=== PATIENT | male | born 1950 | race American Indian/Alaskan Native ===

== ENCOUNTER 2020-11-23 22:03 | Emergency (ER) | payer MEDICARE, MEDICAID ==
[2020-11-23 22:20] VITALS: BP 164/81
--- NOTE | 2020-11-23 22:25 | Emergency Department Report ---
ED Extremity Problem HPI - General Chief complaint: Extremity Injury, Lower Stated complaint: RT ANKLE PAIN Source: patient Mode of arrival: Ambulatory Limitations: No Limitations - History of Present Illness Initial comments: Patient is a 70-year-old -[place] male with a history of hypertension and mpg-dhgegel-ujwsigkit diabetes who presents to the ED with complaint of acute onset persistent painful swollen mild erythematous maculopapular rash on distal right lower leg and medial right ankle for the last 3 weeks. Patient states that the pain has worsened in the last 4 days. Patient also states that the pain is worse with ambulation or palpation of the right lower leg or right ankle. Patient denies fall, traumatic injury, nausea, vomiting, diarrhea, dizziness, syncope, fever, chills, numbness and tingling or weakness of right leg, chest pain or shortness of breath. MD Complaint: extremity pain (Right lower leg and ankle pain), extremity swelling (Right ankle pain and swelling due to erythematous maculopapular rash), other (Erythematous maculopapular rash on right lower leg and ankle) -: Gradual, week(s) (3) Location: right, lower extremity (lower leg and ankle) History of Same: No -: Yes arthralgia, No associated dyspnea, No associated chest pain Radiation: none Severity scale (0 -10): 5 Quality: aching, sharp Consistency: constant Improves with: nothing Worsens with: weight bearing, walking, palpation Associated Symptoms: denies other symptoms, myalgias, arthralgias, rash (Mild erythematous maculopapular rash on right lower leg and ankle). denies: chest pain, shortness of breath, fever - Related Data Previous Rx's Medication Instructions Recorded Last Taken Type Ibuprofen [Motrin] 600 mg PO Q8H PRN #30 tablet 11/23/20 Unknown Rx Sulfamethoxazole/Trimethoprim 1 each PO Q12H #20 tablet 11/23/20 Unknown Rx [Bactrim DS TAB] traMADoL [Ultram] 50 mg PO Q6HR PRN #12 tablet 11/23/20 Unknown Rx Allergies Allergy/AdvReac Type Severity Reaction Status Date / Time No Known Allergies Allergy Verified 11/23/20 22:20 ED Review of Systems ROS: Stated complaint: RT ANKLE PAIN Other details as noted in HPI Constitutional: denies: chills, fever Eyes: denies: eye pain, eye discharge, vision change ENT: denies: ear pain, throat pain Respiratory: denies: cough, shortness of breath, wheezing Cardiovascular: denies: chest pain, palpitations Endocrine: no symptoms reported Gastrointestinal: denies: abdominal pain, nausea, diarrhea Genitourinary: denies: urgency, dysuria Musculoskeletal: arthralgia (right ankle and lower leg pain due to mildly erythematous maculopapular rash), myalgia. denies: back pain, joint swelling Skin: rash, change in color (Erythematous maculopapular painful rash on right lower leg and right ankle medially). denies: lesions Neurological: denies: headache, weakness, paresthesias Psychiatric: denies: anxiety, depression Hematological/Lymphatic: denies: easy bleeding, easy bruising ED Past Medical Hx - Past Medical History Previous Medical History?: Yes Hx Hypertension: Yes Hx Diabetes: Yes - Surgical History Past Surgical History?: Yes Additional Surgical History: bilateral knee replacement - Social History Smoking Status: Never Smoker Substance Use Type: None - Medications Home Medications: Home Medications Medication Instructions Recorded Confirmed Last Taken Type Ibuprofen [Motrin] 600 mg PO Q8H PRN #30 tablet 11/23/20 Unknown Rx Sulfamethoxazole/Trimethoprim 1 each PO Q12H #20 tablet 11/23/20 Unknown Rx [Bactrim DS TAB] traMADoL [Ultram] 50 mg PO Q6HR PRN #12 tablet 11/23/20 Unknown Rx ED Physical Exam - General Limitations: No Limitations General appearance: alert, in no apparent distress - Head Head exam: Present: atraumatic, normocephalic, normal inspection - Eye Eye exam: Present: normal appearance, PERRL, EOMI Pupils: Present: normal accommodation - ENT ENT exam: Present: normal exam, normal orophraynx, mucous membranes moist, TM's normal bilaterally, normal external ear exam - Neck Neck exam: Present: normal inspection, full ROM. Absent: tenderness - Respiratory Respiratory exam: Present: normal lung sounds bilaterally. Absent: respiratory distress, wheezes, rales, rhonchi, chest wall tenderness, decreased breath sounds, prolonged expiratory - Cardiovascular Cardiovascular Exam: Present: regular rate, normal rhythm, normal heart sounds. Absent: systolic murmur, diastolic murmur, rubs, gallop - GI/Abdominal GI/Abdominal exam: Present: soft, normal bowel sounds. Absent: tenderness, guarding, rebound, hyperactive bowel sounds, hypoactive bowel sounds, organomegaly - Extremities Exam Extremities exam: Present: normal inspection, full ROM, tenderness (Palpable mild distal right lower leg and medial right ankle tenderness due to erythematous maculopapular nonfluctuant rash), normal capillary refill. Absent: pedal edema, joint swelling, calf tenderness - Back Exam Back exam: Present: normal inspection, full ROM. Absent: tenderness, CVA tenderness (R), CVA tenderness (L), muscle spasm, paraspinal tenderness, vertebral tenderness - Neurological Exam Neurological exam: Present: alert, oriented X3, CN II-XII intact, normal gait, reflexes normal - Psychiatric Psychiatric exam: Present: normal affect, normal mood - Skin Skin exam: Present: warm, dry, intact, rash (Erythematous maculopapular nonfluctuant rash on medial right ankle and distal right lower leg with localized mild tenderness) ED Course Vital Signs 11/23/20 22:12 Temperature 98.0 F Pulse Rate 82 Respiratory 18 Rate Blood Pressure 164/81 O2 Sat by Pulse 97 Oximetry ED Medical Decision Making - Medical Decision Making This is a 70-year-old -[place] male with a history of hypertension and sfl-kizcnvz-cikeciynp diabetes who presents to the ED with complaint of acute onset persistent painful swollen mild erythematous maculopapular rash on distal right lower leg and medial right ankle for the last 3 weeks. Patient states that the pain has worsened in the last 4 days. Patient also states that the p ain is worse with ambulation or palpation of the right lower leg or right ankle. In the ED, patient is alert and oriented x3 and is not in distress. Based on the physical exam findings, the patient was discharged home on medications and advised to follow-up with a primary care physician or assistant professor of sociology as previously scheduled in 2 days time. Patient was advised return to the ED immediately if symptoms get worse. - Differential Diagnosis Cellulitis; follow colitis; puncture wound; Critical care attestation.: If time is entered above; I have spent that time in minutes in the direct care of this critically ill patient, excluding procedure time. ED Disposition Clinical Impression: Cellulitis of right lower extremity without foot, Cellulitis of right ankle Disposition: - TO HOME OR SELFCARE Is pt being admited?: No Does the pt Need Aspirin: No Condition: Stable Instructions: Cellulitis, Adult, [id number] Additional Instructions: Take medication with food, drink plenty of fluids and follow-up with your primary care physician or assistant professor of sociology as scheduled previously in 2 days time. Return to the ED immediately if symptoms get worse. Prescriptions: Sulfamethoxazole/Trimethoprim [Bactrim DS TAB] 1 each PO Q12H #20 tablet Ibuprofen [Motrin] 600 mg PO Q8H PRN #30 tablet PRN Reason: Pain traMADoL [Ultram] 50 mg PO Q6HR PRN #12 tablet PRN Reason: Pain Referrals: [facility] [Provider Group] - 3-5 Days Time of Disposition: 22:23 Print Language: SLOVENIAN
== END 2020-11-23 23:11 | disposition home or self-care (01) ==
LOC: ED 22:03
DX: L03.115 Cellulitis of right lower limb (principal); I10 Essential (primary) hypertension; E11.9 Type 2 diabetes mellitus without complications; Z98.890 Other specified postprocedural states; Z79.899 Other long term (current) drug therapy
CPT/HCPCS: 99282

== ENCOUNTER 2020-11-27 09:15 | Outpatient (CLI) | payer MEDICARE ==
--- NOTE | 2020-11-27 10:52 | Vascular Lab Report ---
DUPLEX DOPPLER LOWER EXTREMITY VEINS, RIGHT INDICATION: rle pain/swelling. TECHNIQUE: Duplex doppler imaging was performed through the veins of the right lower extremity using venous compression and other maneuvers. COMPARISON: No relevant prior imaging study available. FINDINGS: Right Common femoral vein: Negative. Right Superficial femoral vein: Negative. Right Popliteal vein: Negative. Right Calf veins: Negative. Additional findings: None. IMPRESSION: No sonographic evidence for DVT in the right lower extremity. Signer Name: Ivan Walker Jr, MD Signed: 11/27/2020 10:47 AM Workstation Name: [id number]
== END 2020-11-27 09:16 | disposition home or self-care (01) ==
LOC: VAS 09:15
PROVIDERS: ATTEND Podiatrist Foot & Ankle Surgery
DX: M79.89 Other specified soft tissue disorders (principal); M79.662 Pain in left lower leg

== ENCOUNTER 2021-05-02 09:41 | Emergency (ER) | payer MEDICARE ==
--- NOTE | 2021-05-02 11:22 | Event Note ---
ED Screening Note ED Screening Note: pt presents for leg swelling right greater than left since october 2020 he denies CP, SOB, numbness, weakness hx of HTN and DM pitting edema BLE, right greater than left This initial assessment/diagnostic orders/clinical plan/treatment(s) is/are subject to change based on patients health status, clinical progression and re- assessment by fellow clinical providers in the ED. Further treatment and workup at subsequent clinical providers discretion. Patient/guardian urged not to elope from the ED as their condition may be serious if not clinically assessed and managed. Initial orders include: labs, US
[2021-05-02 11:55] VITALS: BP 165/78
[2021-05-02 11:55] LABS: Basophils # (Auto) 0.1 K/mm3 (0.0-0.1); Basophils % (Auto) 0.8 % (0.0-1.8); Eosinophils # (Auto) 0.1 K/mm3 (0.0-0.4); Eosinophils % (Auto) 1.6 % (0.0-4.3); Hematocrit 37.6 % (35.5-45.6); Lymphocytes % (Auto) 22.7 % (13.4-35.0); Mean Corpuscular HGB Conc 32 % (32-34); Mean Corpuscular Volume 79 fl (84-94); Monocytes # (Auto) 0.8 K/mm3 (0.0-0.8); Monocytes % (Auto) 8.7 % (0.0-7.3); Platelet Count 326 K/mm3 (140-440); Red Blood Count 4.77 M/mm3 (3.65-5.03); Red Cell Distribution Width 15.3 % (13.2-15.2)
[2021-05-02 11:58] LABS: Bilirubin,Urine NEG (Negative); Blood,Urine NEG (Negative); Color,Urine Yellow (Yellow); Protein,Urine <15 mg/dL mg/dL (Negative); Urobilinogen,Urine < 2.0 mg/dL (<2.0); WBC,Urine < 1.0 /HPF (0.0-6.0)
--- NOTE | 2021-05-02 12:01 | Emergency Department Report ---
ED General Adult HPI - General Chief complaint: Extremity Injury, Lower Stated complaint: FOOT SWOLLEN Time Seen by Provider: 05/02/21 11:19 Source: patient Mode of arrival: Ambulatory Limitations: No Limitations - History of Present Illness Initial comments: 70-year-old male patient with history of diabetes presents to the emergency department complaints of bilateral lower extremity swelling worsening for 6 months. Patient was evaluated by his primary care provider today, who sent him to the emergency department for further evaluation. Swelling is worse on the right. States the swelling is not painful. No known history of venous thromboembolism. Patient is not anticoagulated. States his blood glucose levels have been stable. Denies fever, chills, chest pain, shortness of breath, palpitations, syncope, fatigue, dizziness, palpitations, testicular swelling. Denies all other complaints at this time. - Related Data Previous Rx's Medication Instructions Recorded Last Taken Type Ibuprofen [Motrin] 600 mg PO Q8H PRN #30 tablet 11/23/20 Unknown Rx Sulfamethoxazole/Trimethoprim 1 each PO Q12H #20 tablet 11/23/20 Unknown Rx [Bactrim DS TAB] traMADoL [Ultram] 50 mg PO Q6HR PRN #12 tablet 11/23/20 Unknown Rx Allergies Allergy/AdvReac Type Severity Reaction Status Date / Time No Known Allergies Allergy Verified 11/23/20 22:20 ED Review of Systems ROS: Stated complaint: FOOT SWOLLEN Other details as noted in HPI Other: GENERAL: Negative for fever, chills, weight change, anorexia, fatigue. ENT: Negative for ear pain, difficulty hearing, sore throat, nasal congestion, epistaxis. CARDIOVASCULAR: Positive for lower extremity swelling PULMONARY: Negative for cough, dyspnea, wheezing, orthopnea, cyanosis. GASTROINTESTINAL: Negative for abdominal pain, nausea, vomiting, diarrhea, constipation. MUSCULOSKELETAL: Negative for joint pain, joint swelling, myalgias, back pain, neck pain. NEUROLOGICAL: Negative for headache, seizure, syncope, paresthesias, weakness. INTEGUMENTARY: Negative for erythema, rash, diaphoresis, laceration, ecchymosis. HEMATOLOGICAL: Negative for hemoptysis, hematemesis, hematochezia, hematuria. PSYCHIATRIC: Negative for hallucinations, suicidal ideation, homicidal ideation, anxiety, depression. ED Past Medical Hx - Past Medical History Previous Medical History?: Yes Hx Hypertension: Yes Hx Diabetes: Yes - Surgical History Past Surgical History?: Yes Additional Surgical History: bilateral knee replacement - Social History Smoking Status: Never Smoker Substance Use Type: None - Medications Home Medications: Home Medications Medication Instructions Recorded Confirmed Last Taken Type Ibuprofen [Motrin] 600 mg PO Q8H PRN #30 tablet 11/23/20 Unknown Rx Sulfamethoxazole/Trimethoprim 1 each PO Q12H #20 tablet 11/23/20 Unknown Rx [Bactrim DS TAB] traMADoL [Ultram] 50 mg PO Q6HR PRN #12 tablet 11/23/20 Unknown Rx ED Physical Exam - General Limitations: No Limitations - Other Other exam information: General: Awake and alert. No acute distress. BMI 49.6. Head: Atraumatic, normocephalic. Eyes: EOMI. Pupils are equal and round. Normal sclera and conjunctiva. ENT: Oral mucosa is moist. Normal pharyngeal exam. Neck: Supple. No lymphadenopathy. No JVD. Pulmonary: No respiratory distress. Clear to auscultation bilaterally. Cardiac: Regular rate and rhythm. Pulses are palpable and equal bilaterally. Bilateral pretibial pitting edema, right > left. Skin: Warm and dry. No rashes. Abdomen: Soft, non-tender, non-protuberant. No guarding, rigidity, or rebound. Bowel sounds are normal. No organomegaly or masses noted. Back: Normal alignment. No CVA tenderness. Extremities: Symmetrical. Full range of motion intact. Neurological: Alert and oriented, appropriately interactive, no focal deficits. Psych: Cooperative. Appropriate mood and affect. Speech is evenly metered. Thoughts are logically construed. ED Course Vital Signs 05/02/21 11:12 Temperature 98.3 F Pulse Rate 59 L Respiratory 18 Rate Blood Pressure 165/78 O2 Sat by Pulse 96 Oximetry ED Medical Decision Making - Lab Data Result diagrams: 05/02/21 11:28 05/02/21 11:28 - Medical Decision Making Differential diagnosis including but not limited to: deep vein thrombosis, peripheral vascular disease, lymphedema, renal failure, liver failure, dehydration, electrolyte abnormality, congestive heart failure, pulmonary hypertension, adverse medication effect On reevaluation, patient remains stable. No chest pain, no shortness of breath, no hypoxia, no respiratory distress. Repeat neurovascular exam remains intact. Venous duplex ultrasound of bilateral lower extremities ordered during medical screening exam without evidence of deep vein thrombosis. Labs are unremarkable. Chest x-ray is negative. Etiology of patient's chronic peripheral edema remains unclear however there is no clinical indication for further diagnostic work-up on an emergent basis. Patient will be discharged home to follow-up with his primary care provider for close outpatient follow-up. Patient expressed understanding and is agreeable to plan of care. Lifestyle modifications discussed. Strict return precautions provided. Repeat exam is unremarkable and benign. History, exam, diagnostic testing, and current condition do not suggest worrisome pathology to warrant further testing, continued ED treatment, admission, or surgical evaluation at this point. Given the low probability of a significant medical illness, it would be more likely to result in harm than benefit to perform further testing at this stage. Discussed findings, presumptive diagnosis, need for follow-up and specific signs/symptoms that should prompt immediate return to the emergency department. Instructions were explained in detail to the patient in addition to giving written discharge information. Patient expressed understanding and was given the opportunity to ask questions, all of which were satisfactorily answered prior to discharge home. Critical care attestation.: If time is entered above; I have spent that time in minutes in the direct care of this critically ill patient, excluding procedure time. ED Disposition Clinical Impression: Bilateral lower extremity edema Disposition: DC-01 TO HOME OR SELFCARE Is pt being admited?: No Does the pt Need Aspirin: No Condition: Stable Instructions: Peripheral Edema Additional Instructions: Continue medications as previously prescribed. Keep legs elevated as often as possible to reduce swelling. Wear compression stockings as needed to reduce swelling. Eliminate all sodium from your diet. Follow-up with your primary care provider this week. Call tomorrow to schedule an appointment. Return to the emergency department immediately for new or worsening symptoms. Specifically, return to the emergency department immediately for fever, chest pain, difficulty breathing, palpitations, loss of consciousness, or any other concerns Referrals: LILLIE FERGUSON MD [Primary Care Provider] - 3-5 Days [facility] [Provider Group] - 3-5 Days Forms: Work/School Release Form(ED) Time of Disposition: 15:40
[2021-05-02 12:17] LABS: Alanine Aminotransferase 17 units/L (7-56); Albumin 4.2 g/dL (3.9-5); BUN/Creatinine Ratio 12; Blood Urea Nitrogen 12 mg/dL (9-20); Calcium 9.5 mg/dL (8.4-10.2); Hemolysis Index 5
[2021-05-02 12:28] LABS: INR 1.01 (0.87-1.13)
--- NOTE | 2021-05-02 12:33 | XRay Report ---
CHEST 2 VIEWS INDICATION: lower extremity pitting edema. COMPARISON: None FINDINGS: Support devices: None. Heart: Borderline cardiac enlargement Lungs: No acute air space or interstitial disease. Pleura: No significant pleural effusion. No pneumothorax. Additional findings: None. IMPRESSION: 1. No acute findings. Signer Name: Silverio Duong MD Signed: 05/02/2021 12:29 PM Workstation Name: [id number]
--- NOTE | 2021-05-02 15:20 | Vascular Lab Report ---
DUPLEX DOPPLER LOWER EXTREMITY VEINS, BILATERAL INDICATION / CLINICAL INFORMATION: BLE edema, right greater than left. TECHNIQUE: Duplex doppler imaging was performed through the veins of both lower extremities using venous weston bonnie and other maneuvers. COMPARISON: None available. FINDINGS: RIGHT COMMON FEMORAL VEIN: Negative. RIGHT FEMORAL VEIN: Negative. RIGHT POPLITEAL VEIN: Negative. RIGHT CALF VEINS: Negative. LEFT COMMON FEMORAL VEIN: Negative. LEFT FEMORAL VEIN: Negative. LEFT POPLITEAL VEIN: Negative. LEFT CALF VEINS: Negative. ADDITIONAL FINDINGS: None. IMPRESSION: 1. No sonographic evidence for DVT in either lower extremity. Signer Name: Chon Baxter MD Signed: 05/02/2021 3:15 PM Workstation Name: [id number]
== END 2021-05-02 15:47 | disposition home or self-care (01) ==
LOC: ED 09:41
DX: R60.0 Localized edema (principal); I10 Essential (primary) hypertension; E11.9 Type 2 diabetes mellitus without complications; Z79.899 Other long term (current) drug therapy; Z98.890 Other specified postprocedural states
CPT/HCPCS: 36415; 71046; 80053; 81001; 82550; 83735; 83880; 85025; 85610; 85730; 93970

== ENCOUNTER 2021-05-25 08:08 | Outpatient (CLI) | payer MEDICARE ==
--- NOTE | 2021-05-25 09:49 | XRay Report ---
Right ankle 3 views INDICATION: Pain and swelling FINDINGS: Diffuse swelling within the lower leg medial and lateral ankle. Alignment appears normal. C alcaneal spurring is noted. No acute fracture. IMPRESSION: Diffuse swelling in soft tissues of lower leg and ankle. Signer Name: Matthew Gillespie MD Signed: 05/25/2021 9:44 AM Workstation Name: [id number]
== END 2021-05-25 08:09 | disposition home or self-care (01) ==
LOC: XRAY 08:08
PROVIDERS: ATTEND Podiatrist
DX: M77.31 Calcaneal spur, right foot (principal); M79.89 Other specified soft tissue disorders

== ENCOUNTER 2022-04-04 15:33 | Outpatient (CLI) | payer MEDICARE | END 2022-04-04 15:34 | disposition home or self-care (01) | LOC: LABHHL 15:33 | PROVIDERS: ATTEND Surgery | DX: D17.1 Benign lipomatous neoplasm of skin and subcutaneous tissue of trunk (principal) | CPT/HCPCS: 88304 ==

== ENCOUNTER 2022-05-12 08:03 | Day surgery (SDC) | payer MEDICARE ==
[~2022-05-12 08:03] MED LIST: ceFAZolin/STERILE WATER 2 GM/20 ML SYRINGE IV NR
[2022-05-12] MEDS ORDERED: LACTATED RINGERS 1,000 ML ONE (08:42)
--- NOTE | 2022-05-12 08:48 | Anesthesia Day of Surgery ---
Anesthesia Day of Surgery - Day of Surgery Patient Examined: Yes Patient H&P Reviewed: Yes Patient is NPO: Yes
--- NOTE | 2022-05-12 08:50 | Anesthesia Consultation ---
Anesthesia Consult and Med Hx - Airway ROM Head & Neck: Adequate Mental/Hyoid Distance: Adequate Mallampati Class: Class III Intubation Access Assessment: Possibly Difficult - Pulmonary Exam CTA: Yes - Cardiac Exam Cardiac Exam: RRR - Pre-Operative Health Status ASA Pre-Surgery Classification: ASA3 Proposed Anesthetic Plan: General, MAC - Pulmonary Hx Smoking: No Hx Sleep Apnea: Yes (noncompliant with cpap) - Cardiovascular System Hx Hypertension: Yes - Central Nervous System Hx Back Pain: Yes Hx Psychiatric Problems: No - Endocrine Hx Insulin Dependent Diabetes: Yes - Hematic Hx Anemia: No Hx Sickle Cell Disease: No - Other Systems Hx Alcohol Use: No Hx Substance Use: No Hx Cancer: No
[2022-05-12] MEDS ORDERED: fentaNYL 100 MCG/2 ML INJ ONE (08:56)
[2022-05-12] MEDS ORDERED: LIDOCAINE MPF (2%) 20 MG/1 ML VIAL 5 ML ONE (08:56)
[2022-05-12] MEDS ORDERED: propofoL 200 MG/20 ML VIAL IV ONE ×3 (08:57→11:09)
[2022-05-12] MEDS ORDERED: KETAMINE/STERILE WATER 50 MG/ML SYRINGE ONE (08:58)
[2022-05-12 09:06] LABS: Mean Corpuscular HGB Conc 33 % (32-34); Mean Corpuscular Volume 80 fl (84-94); Platelet Count 278 K/mm3 (140-440); Red Blood Count 4.51 M/mm3 (3.65-5.03); Red Cell Distribution Width 15.7 % (13.2-15.2)
[2022-05-12] MEDS ORDERED: HYDROmorphone 0.5 MG/0.5 ML INJ IV PRN ×2 (09:17)
[2022-05-12] MEDS ORDERED: ONDANSETRON 4 MG/2 ML INJ IV PRN (09:17)
[2022-05-12] MEDS ORDERED: LACTATED RINGERS 1,000 ML IV SCH (09:30)
[2022-05-12 09:36] LABS: BUN/Creatinine Ratio 16; Blood Urea Nitrogen 19 mg/dL (9-20); Calcium 9.3 mg/dL (8.4-10.2); Hemolysis Index 176
[2022-05-12] MEDS ORDERED: MIDAZOLAM 2 MG/2 ML INJ ONE (09:50)
[2022-05-12] MEDS ORDERED: BUPIVACAINE/PF (0.25%) 2.5 MG/ML 30 ML VIAL INFILTRATI ONE (10:04)
[2022-05-12] MEDS ORDERED: LIDOCAINE (1%) 10 MG/1 ML VIAL 20 ML MDV ONE (10:04)
[2022-05-12] MEDS ORDERED: BUPIVACAINE/PF (0.5%) 5 MG/1 ML 30 ML VIAL INFILTRATI ONE (10:56)
[2022-05-12] MEDS ORDERED: LIDOCAINE (1%) 10 MG/1 ML VIAL 20 ML MDV INFILTRATI ONE (10:57)
[2022-05-12] MEDS ORDERED: SODIUM CHLORIDE 0.9% IRR 1,500 ML BOTTLE IR ONE (10:57)
--- NOTE | 2022-05-12 11:56 | Short Stay Summary ---
Short Stay Documentation Date of service: 05/12/22 - History Principal diagnosis: Lipoma of the back H&P: obtained from office - Allergies and Medications Current Medications: Allergies No Known Allergies Allergy (Verified 11/23/20 22:20) Home Medications Medication Instructions Recorded Confirmed Last Taken Type Glucosamine-Chondroitin Tab 1 tab PO DAILY 05/04/22 05/04/22 Unknown History Spironolactone [Aldactone] 25 mg PO QDAY 05/04/22 05/04/22 Unknown History Valsartan/Hctz 360 mg PO DAILY 05/04/22 Unknown History Vitamin D3 1 cap PO 1XW 05/04/22 05/04/22 Unknown History amLODIPine [Norvasc] 10 mg PO DAILY 05/04/22 05/04/22 Unknown History glipiZIDE [Glucotrol] 10 mg PO QDAY 05/04/22 05/04/22 Unknown History metFORMIN [Glucophage] 500 mg PO BID 05/04/22 05/04/22 Unknown History Active Medications Cefazolin Sodium (Cefazolin/Sterile Water 2 Gm/20 Ml Syringe) 2 gm IV PREOP NR Stop: 05/12/22 20:00 Hydromorphone HCl (Hydromorphone 0.5 Mg/0.5 Ml Inj) 0.5 mg IV Q10MIN PRN PRN Reason: Pain , Severe (7-10) Stop: 05/13/22 09:16 Hydromorphone HCl (Hydromorphone 0.5 Mg/0.5 Ml Inj) 0.25 mg IV Q10MIN PRN PRN Reason: Pain, Moderate (4-6) Stop: 05/13/22 09:16 Lactated Ringer's (Lactated Ringers) 1,000 mls @ 125 mls/hr IV DIRECT SHELBI Last Admin: 05/12/22 08:58 Dose: 125 mls/hr Ondansetron HCl (Ondansetron 4 Mg/2 Ml Inj) 4 mg IV ONCE PRN PRN Reason: Nausea And Vomiting - Brief post op/procedure progress note Date of procedure: 05/12/22 Pre-op diagnosis: Lipoma of the back Post-op diagnosis: same Procedure: Excision of lipoma of back Anesthesia: MAC Findings: Large lipoma of the upper back Surgeon: ROSA FINLEY Estimated blood loss: minimal Pathology: list (Lipoma of the back) Specimen disposition: to lab Condition: stable - Disposition Condition at discharge: Good Disposition: 01 HOME / SELF CARE / HOMELESS Short Stay Discharge Plan Weight Bearing Status: Full Weight Bearing Diet: regular Wound: keep clean and dry Follow up with: JL DOWELL NP-C [Primary Care Provider] - 7 Days ROSA FINLEY MD [Staff Physician] - 7 Days Prescriptions: HYDROcodone/APAP 7.5-325 [Thida 7.5/325] 1 each PO Q6HR PRN #14 tablet PRN Reason: Pain
--- NOTE | 2022-05-12 12:01 | Operative Report ---
Operative Report Operative Report: date: 05/12/2022 Preop diagnosis: Lipoma of the back Postop diagnosis: Same Procedure: Excision of lipoma of the XXX Surgeon: Dr. Vazquez Cytology Teacher: Dr. Stephens Anesthesia: MAC IV sedation and local Estimated blood loss: Minimal Specimen: Lipoma of the back Findings: This patient is noted to have a lipoma of the back. The patient is taken to the OR and under MAC IV sedation, timeouts are completed consents on the chart. The the patient received 2 g of Ancef. The area was prepped with ChloraPrep and draped in a sterile fashion. Patient is in the lateral cubitus position right side down. Elliptical incision is made over the lipoma site with a #10 scalpel. The area is infiltrated with 1% lidocaine and half percent Marcaine. Electrocautery was used to dissect the lipoma completely from the area. Hemostasis obtained with electrocautery. Wound is irrigated with saline. Wound is closed in layers with 2 and 3-0 Vicryl. Skin is closed with Dermabond and 4-0 Monocryl.
[2022-05-12 12:58] VITALS: BP 117/58
--- NOTE | 2022-05-12 18:16 | Post Anesthesia Evaluation ---
- Post Anesthesia Evaluation Patient Participated: Yes Airway Patent: Yes Stable Respiratory Function: Yes Nausea/Vomiting: No Temp > 96.8F: Yes Pain Manageable: Yes Adequeate Hydration: Yes Anesthesia Complications: No Block Receding Appropriately: Not Applicable Patient on Ventilator: No
== END 2022-05-12 13:20 | disposition home or self-care (01) ==
LOC: OR 08:03
PROVIDERS: ATTEND Surgery
DX: D17.1 Benign lipomatous neoplasm of skin and subcutaneous tissue of trunk (principal); E78.00 Pure hypercholesterolemia, unspecified; I10 Essential (primary) hypertension; G47.30 Sleep apnea, unspecified; M19.90 Unspecified osteoarthritis, unspecified site; E11.9 Type 2 diabetes mellitus without complications; Z79.84 Long term (current) use of oral hypoglycemic drugs; Z79.899 Other long term (current) drug therapy; Z98.41 Cataract extraction status, right eye; Z98.42 Cataract extraction status, left eye; Z96.653 Presence of artificial knee joint, bilateral; Z98.890 Other specified postprocedural states
CPT/HCPCS: 21931; 36415; 80048; 82962; 85027; 88304; J0690; J2250; J2704; J3010; J3490; J7120; J7121